=== PATIENT | male | born 1980 | race American Indian/Alaskan Native ===

== ENCOUNTER 2016-11-28 21:14 | Emergency (ER) | payer OTHER ==
[~2016-11-28] VITALS: Ht 182.9 cm; Wt 113.4 kg
[2016-11-28 21:56] LABS: ABSOLUTE BASOPHIL COUNT 0 /CUMM (0.0-0.2); ABSOLUTE EOSINOPHIL COUNT 0.1 /CUMM (0.0-0.7); ABSOLUTE GRANULOCYTE CT 3.6 /CUMM (1.4-6.5); ABSOLUTE LYMPH COUNT 2.7 /CUMM (1.2-3.4); BASOPHIL % 0.2 % (0.0-2.0); EOSINOPHIL % 1.6 % (0-5); GRANULOCYTE % 48.7 % (42.2-75.2); HEMATOCRIT 41.5 % (42-52); MEAN CORPUSCULAR HGB 30.2 PG (27.0-31.0); MEAN CORPUSCULAR HGB CONC 35.3 G/DL (33.0-37.0); MEAN CORPUSCULAR VOLUME 85.6 FL (80.0-94.0); MEAN PLATELET VOLUME 8.8 FL (7.4-10.4); PLATELET COUNT 260 /CUMM (130-400); RBC DISTRIBUTION WIDTH 12.2 % (11.5-14.5); RED BLOOD CELL CT 4.85 /CUMM (4.70-6.10); WHITE BLOOD CELL COUNT 7.4 /CUMM (4.8-10.8)
--- NOTE | 2016-11-28 22:20 | RADIOLOGY REPORT ---
EXAMINATION: XR PORTABLE CHEST CLINICAL INFORMATION: Rapid heart rate. COMPARISON: None TECHNIQUE: Portable AP view of the chest was obtained. FINDINGS: Cardiac leads overlie the chest. The lungs are well expanded. There is no focal consolidation, edema, or effusion. No pneumothorax. The cardiomediastinal silhouette is within normal limits. No acute osseous abnormality. IMPRESSION: Clear lungs.
[2016-11-28 23:38] VITALS: BP 128/70
[2016-11-29] MEDS ORDERED: LOPRESSOR50 M1 PO (00:16)
--- NOTE | 2016-11-29 00:16 | ED CARDIAC/CP/PALPITATIONS ---
History of Present Illness General Chief Complaint: General Adult Stated Complaint: BIBA FOR EVAL OF PALPATION Source: patient, old records Exam Limitations: no limitations Vital Signs & Intake/Output Vital Signs & Intake/Output Vital Signs Date Time Temp Pulse Resp B/P Pulse O2 O2 Flow FiO2 Ox Delivery Rate 11/288 97.3 112 18 128/70 97 Room Air Room Air 11/28 2259 99.9 11/28 2259 99.9 122 18 148/84 11/28 2234 99.9 122 18 148/84 98 Room Air Room Air 11/28 2202 134 165/86 11/28 2159 100.4 144 20 165/86 11/28 2121 100.4 144 20 142/88 98 Room Air ED Intake and Output 11/29 0000 11/28 1200 Intake Total 2000 Output Total Balance 1999 Intake, IV 2000 Patient 250 lb Weight Allergies Coded Allergies: No Known Allergies (11/28/16) Reconcile Medications Metoprolol Tartrate (Lopressor) 50 MG TABLET 1 TAB PO BID hyperthyroidism Triage Note: PT BIBA FROM HOME AFTER HAVING A FEELING OF HEART RACING AND LIGHTHEADEDNESS. PT STATES HE WAS JUST DRINKING WATER WHEN IT STARTED. STATES IT FEELS LIKE ANXIETY. DENIES PAIN. STATES IT IS HARD TO HAVE A FULL BREATH BUT IS IN NO DISTRESS. SKIN WARM AND DRY. Triage Nurses Notes Reviewed? yes Onset: Just prior to arrival Duration: minute(s):, constant, continues in ED Timing: recent history Quality/Severity: severe Location: substernal Radiation: no radiation Activities at Onset: rest Prior Chest Pain/Card Workup: no prior cardiac workup Nitro Today/Relief: no nitro taken today Aspirin Today: 81 mg x 4, provided by ED HPI: Prior to admission patient felt heart racing. He denies fever chills nausea vomiting diarrhea abdominal pain chest pain shortness of breath headache dysuria rash bleeding Past History Travel History Traveled to [place] past 21 day No Medical History Any Pertinent Medical History? 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 No Review of Systems Review of Systems Constitutional: Reports: no symptoms. EENTM: Reports: no symptoms. Respiratory: Reports: no symptoms. Cardiovascular: Reports: see HPI, palpitations. GI: Reports: no symptoms. Genitourinary: Reports: no symptoms. Musculoskeletal: Reports: no symptoms. Skin: Reports: no symptoms. Neurological/Psychological: Reports: no symptoms. Hematologic/Endocrine: Reports: no symptoms. Immunologic/Allergic: Reports: no symptoms. All Other Systems: Reviewed and Negative Physical Exam Physical Exam General Appearance: well developed/nourished, alert, awake, anxious, mild distress Head: atraumatic, normal appearance Eyes: Bilateral: normal appearance, PERRL, EOMI. Ears, Nose, Throat: normal pharynx, normal ENT inspection Neck: normal inspection, supple, full range of motion, no midline tenderness Respiratory: normal breath sounds, chest non-tender, no respiratory distress, quiet respiration, lungs clear Cardiovascular: regular rate/rhythm, normal peripheral pulses, tachycardia, norml femoral pulses equa Peripheral Pulses: 4+ carotid (R), 4+ carotid (L) Gastrointestinal: normal bowel sounds, soft, non-tender, no organomegaly Back: normal inspection, normal range of motion Extremities: normal inspection, normal capillary refill, normal range of motion, no edema Neurologic/Psych: no motor/sensory deficits, awake, alert, oriented x 3, normal gait, normal mood/affect, 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 Skin: intact, normal color, warm/dry Lymphatic: no anterior cervical jory Core Measures ACS in differential dx? Yes ASA ordered for poss ACS? Yes-ordered Severe Sepsis Present: No Septic Shock Present: No Progress Differential Diagnosis: atrial fibrillation, hyperkalemia, hypovolemia, hyperthyroid Plan of Care: Orders Procedure Date/time Status URINE DRUG SCREEN FOR ER ONLY 11/28 224 Complete URINALYSIS 11/28 2240 Complete TOTAL TRIODOTHYROXINE 11/28 2146 Complete FREE T4 11/28 2146 Complete TSH REFLEX 11/29 2139 Complete TROPONIN LEVEL 11/29 2139 Complete MAGNESIUM 11/29 2139 Complete COMPREHENSIVE METABOLIC PANEL 11/29 2139 Complete CBC WITHOUT DIFFERENTIAL 11/29 2139 Complete EKG 11/29 2115 Active Laboratory Tests 11/28/16 2337: Urine Opiates Screen < 100.00, Methadone Screen < 40, Barbiturate Screen < 60, Ur Phencyclidine Scrn < 6.00, Amphetamines Screen < 100, U Benzodiazepines Scrn < 85, Urine Cocaine Screen < 50, Urine Cannabis Screen < 5.00, Urine Color STRAW , Urine Clarity CLEAR, Urine pH 6.5, Ur Specific [place] <= 1.005, Urine Protein NEG, Urine Ketones NEG, Urine Nitrite NEG, Urine Bilirubin NEG, Urine Urobilinogen 0.2, Ur Leukocyte Esterase NEG, Ur Microscopic EXAM NOT REQUIRED, Urine Hemoglobin NEG, Urine Glucose NEG 11/28/16 2147: Anion Gap 10, Estimated GFR > 60, BUN/Creatinine Ratio 16.3, Glucose 103 H, Calcium 9.4, Magnesium 1.7, Total Bilirubin 0.4, AST 37, ALT 74 H, Alkaline Phosphatase 71, Troponin I < 0.01, Total Protein 6.8, Albumin 3.7, Globulin 3.1, Albumin/Globulin Ratio 1.2, Free T4 3.73 H, Total T3 4.28 H, TSH &T3 &Free T4 Intrp < 0.015 L, CBC w Diff NO MAN DIFF REQ, RBC 4.85, MCV 85.6, MCH 30.2, RDW 12.2, MPV 8.8, Gran % 48.7, Lymphocytes % 36.1, Monocytes % 13.4 H, Eosinophils % 1.6, Basophils % 0.2, Absolute Granulocytes 3.6, Absolute Lymphocytes 2.7, Absolute Monocytes 1.0 H, Absolute Eosinophils 0.1, Absolute Basophils 0, PUBS MCHC 35.3 Diagnostic Imaging: Viewed by Me: Radiology Read. Discussed w/RAD: Radiology Read. CXR Impression: no acute abnormality, no infiltrates, normal size heart, normal mediastinum Initial ED EKG: normal axis, normal intervals, normal p-waves, normal QRS complex, rate (sinus tachycardia) Rhythm Strip: sinus tachycardia Departure Departure Time of Disposition: 10 Disposition: HOME OR SELF CARE Condition: Stable Clinical Impression Primary Impression: Hyperthyroidism Referrals: ASHLEIGH WALL,DIANN Jesus Call for endocrinology Departure Forms: Customer Survey General Discharge Information Prescriptions: Current Visit Scripts Metoprolol Tartrate (Lopressor) 1 TAB PO BID #60 TAB Critical Care Note Critical Care Note Critical Care Time: 30-74 min (40)
== END 2016-11-29 00:39 ==
LOC: ERH 21:14
PROVIDERS: Emergency Medicine
DX: E05.90 Thyrotoxicosis, unspecified without thyrotoxic crisis or storm (principal)
CPT/HCPCS: 80307; 81003; 93005; 93010; 96374; 96376; 99291

== ENCOUNTER 2018-05-14 01:27 | Emergency (ER) | payer OTHER ==
[~2018-05-14] VITALS: Ht 182.9 cm; Wt 120.2 kg
[~2018-05-14 01:27] MED LIST: LOPRESSOR50 M1 PO
[2018-05-14] MEDS ORDERED: METHIMAZOLE5 M1 PO (01:49)
--- NOTE | 2018-05-14 02:50 | ED CARDIAC/CP/PALPITATIONS ---
History of Present Illness General Chief Complaint: General Adult Stated Complaint: MULTI COMP DIFF BREATHING,PANIC ATTACK Source: patient, family, old records Exam Limitations: no limitations Vital Signs & Intake/Output Vital Signs & Intake/Output Vital Signs Date Time Temp Pulse Resp B/P B/P Pulse O2 O2 Flow FiO2 Mean Ox Delivery Rate 05/14 302 97.5 80 18 143/86 99 Room Air 05/14 0301 97 Room Air 05/14 0149 97.4 80 18 158/95 100 Room Air Allergies Coded Allergies: No Known Allergies (05/14/18) Reconcile Medications Alprazolam (Xanax) 0.5 MG TABLET 1 TAB PO BIDP PRN anxiety / panic attach May repeat x 1 in 40 minutes if no effect Methimazole 5 MG TABLET 1 TAB PO DAILY THYROID (Reported) Metoprolol Tartrate (Lopressor) 50 MG TABLET 1 TAB PO BID hyperthyroidism Paroxetine HCl 20 MG TABLET 1 TAB PO DAILY DORIAN Zolpidem Tartrate (Ambien) 10 MG TABLET 1 TAB PO QHS PRN insomnia Triage Note: TRIAGE: PATIENT TO ER FROM HOME REPORTING X 1-2MONTHS "MEDS WERE CUT IN HALF, STARTED FEELING BAD SO MODIFIED THEM AGAIN." REPORTS INTERMITTENT PALPITATIONS, "MY HEART STARTS RACING, FEELS LIKE I'M DOING EXERCISE BUT I'M NOT." REPORTS HAD BW LAST WEEK, "WHICH WAS FINE." +ANXIETY. STATES "IT'S ALL LIKE TYHROID SX THAT I'VE HAD IN THE PAST." Triage Nurses Notes Reviewed? yes Onset: Just prior to arrival Duration: minute(s):, better, constant, continues in ED Timing: recent history Quality/Severity: moderate, tightness Location: central Radiation: no radiation Activities at Onset: sleep Prior Chest Pain/Card Workup: non-cardiac Modifying Factors: Improves With: rest. Nitro Today/Relief: no nitro taken today Aspirin Today: no aspirin today Associated Symptoms: diaphoresis, dizziness, fatigue, shortness of breath, weakness HPI: 2 weeks prior to admission patient reports doses adjustment of methimazole. He has been having issues with decreasing dose. Prior to admission patient awoke with anxiety palpitations diaphoresis chest pain now better. He complains of increasing anxiety and panic symptoms unable to perform his job. He denies fever chills nausea vomiting diarrhea abdominal pain cough headache dysuria rash bleeding. Past History Travel History Traveled to [place] past 21 day No Medical History Any Pertinent Medical History? 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 No Review of Systems Review of Systems Constitutional: Reports: see HPI, diaphoresis. EENTM: Reports: no symptoms. Respiratory: Reports: see HPI, short of breath. Cardiovascular: Reports: see HPI, chest pain, palpitations. GI: Reports: no symptoms. Genitourinary: Reports: no symptoms. Musculoskeletal: Reports: no symptoms. Skin: Reports: no symptoms. Neurological/Psychological: Reports: see HPI, anxiety. Hematologic/Endocrine: Reports: no symptoms. Immunologic/Allergic: Reports: no symptoms. All Other Systems: Reviewed and Negative Physical Exam Physical Exam General Appearance: well developed/nourished, alert, awake, anxious, mild distress, obese Head: atraumatic, normal appearance Eyes: Bilateral: normal appearance, PERRL, EOMI. Ears, Nose, Throat: normal pharynx, normal ENT inspection, hearing grossly normal Neck: normal inspection, supple, full range of motion, no midline tenderness Respiratory: normal breath sounds, chest non-tender, no respiratory distress, quiet respiration, lungs clear Cardiovascular: regular rate/rhythm, normal peripheral pulses, norml femoral pulses equa Peripheral Pulses: 4+ carotid (R), 4+ carotid (L) Gastrointestinal: normal bowel sounds, soft, non-tender, no organomegaly Back: normal inspection, normal range of motion Extremities: normal inspection, normal capillary refill, normal range of motion, no edema Neurologic/Psych: no motor/sensory deficits, awake, alert, oriented x 3, normal gait, 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 Skin: intact, normal color, warm/dry Lymphatic: no anterior cervical jory Core Measures ACS in differential dx? No CVA/TIA Diagnosis No Sepsis Present: No Sepsis Focused Exam Completed? No Progress Differential Diagnosis: atrial fibrillation, costochondritis, hyperkalemia, hypovolemia, hyperthyroid Plan of Care: Orders Procedure Date/time Status EKG 05/14 015 Active Initial ED EKG: normal axis, normal intervals, normal p-waves, normal QRS complex, normal sinus rhythm, NSR, rhythm Departure Departure Time of Disposition: 249 Disposition: HOME OR SELF CARE Condition: Stable Clinical Impression Primary Impression: Palpitations Secondary Impressions: Generalized anxiety disorder with panic attacks Referrals: Donte WALL,Guillermo Jesus (PCP/Family) Departure Forms: Customer Survey General Discharge Information Prescriptions: Current Visit Scripts Paroxetine HCl 1 TAB PO DAILY #30 TAB Zolpidem Tartrate (Ambien) 1 TAB PO QHS PRN insomnia #30 TAB Alprazolam (Xanax) 1 TAB PO BIDP PRN anxiety / panic attach #30 TAB May repeat x 1 in 40 minutes if no effect Critical Care Note Critical Care Note Critical Care Time: non-applicable
[2018-05-14] MEDS ORDERED: XANAX0.5 M1 PO (02:54)
[2018-05-14] MEDS ORDERED: PAROXETINE HCL20 M1 PO (02:54)
[2018-05-14] MEDS ORDERED: AMBIEN10 M1 PO (02:54)
[2018-05-14 03:02] VITALS: BP 143/86
== END 2018-05-14 03:06 ==
LOC: ERH 01:27
DX: R00.2 Palpitations (principal); F41.0 Panic disorder [episodic paroxysmal anxiety]
CPT/HCPCS: 93005; 93010